=== PATIENT | male | born 1955 ===

== ENCOUNTER → 2017-12-30 | Outpatient (CLI) | payer BC, OTHER ==
[~2017-12-30] MED LIST: ALBUTEROL SULFATE 0.083% NEB 2.5 MG/3 ML AMPUL NEB ONE
--- NOTE | 2018-01-01 11:14 | Pulmonary Function Test ---
Pulmonary Function Test Date of Procedure:: 01/01/18 INDICATION:: Dyspnea Referring Provider: Dr. Donovan Inspector [employer] Hose: Zulema Romo [employer] - Report Spirometry: FVC 3.53 L 94% postbronchodilator 3.35 L 89% FEV1 1.08 L 36% postbronchodilator 1.06 L 35% FEV1/FVC % 30 postbronchodilator 32 predicted 80 FEF 25-75% 0.27 L 9% postbronchodilator 0.29 L 9% Lung Volume: Total lung capacity 8.42 L 142% Vital capacity 3.53 L 94% Inspiratory capacity 1.95 L FRC 2 6.47 L 184% ERV 0.92 L RV 4.89 L 224% RV/TLC % 58 predicted 38 Diffusion Capactity: Diffusion capacity 10.8 56% DLCO/VA 3.09 79% Impression: Severe obstructive ventilatory defect with insignificant response to bronchodilator therapy this in and of itself does not preclude a clinical trial of bronchodilator therapy. No restrictive ventilatory defect. Moderate hyperinflation and air-trapping. Moderate decrease in diffusion capacity.
== END ==
LOC: RT 09:14
PROVIDERS: ATTEND Internal Medicine Pulmonary Disease
DX: J44.9 Chronic obstructive pulmonary disease, unspecified (principal)
CPT/HCPCS: 94060; 94727; 94729